=== PATIENT | female | born 1955 | race Caucasian/White ===

== ENCOUNTER 2017-08-19 05:22 | Emergency (ER) | payer OTHER, MEDICARE ==
[~2017-08-19] VITALS: Ht 172.7 cm; Wt 97.7 kg
[~2017-08-19 05:22] MED LIST: ALDACTONE25 MG PO; AMOX TR-K CLV1 EAC4 PO; APRISO0.375 GM PO; ASPIR 8181 M1 PO; ASPIRIN325 MG PO; Aldactazide 25/25 PO; CIPRO500 MG PO; CYMBALTA20 MG PO; Cipro PO; Dilaudid PO; FLAGYL500 MG PO; FLEXERIL10 MG PO; Flagyl PO; LORTAB 5-325 M1 EACH PO; LYRICA25 MG PO; Levaquin PO; MAXAIR AUTOHALE14 GM IH; MAXZIDE 37.5 M1 EACH PO; NEXIUM40 MG PO; PHENERGAN12.5 M1 PO; SPIRONOLACT/HC1 EACH PO; TORADOL10 MG PO; VITAMIN D32000 UNIT PO; Vicodin,Norco 5/325 PO; WELLBUTRIN SR200 MG PO
[2017-08-19 06:25] LABS: BASOPHIL (%) 0.1 % (0-1); EOSINOPHIL (%) 0.2 % (0-5); HEMATOCRIT 47.7 % (36.0-46.0); HEMOGLOBIN 16.2 G/DL (11.9-15.5); IMMATURE GRANULOCYTE (%) 0.2 % (0.0-0.7); LYMPHOCYTE (%) 5.8 % (15-42); LYMPHOCYTE COUNT 0.6 K/uL (1.0-2.8); MCH 29.8 PG (29.0-34.0); MCV 87.8 FL (83-99); MONOCYTE (%) 5.6 % (3-12); MONOCYTE COUNT 0.5 K/uL (0-0.8); NEUTROPHIL (%) 88.1 % (45-76); NEUTROPHIL COUNT 8.4 K/uL (1.8-6.4); PLATELET COUNT 202 K/uL (156-360); RBC DIS.WIDTH-CV 12.9 % (11.8-14.6); RBC DIS.WIDTH-SD 41.6 % (39-53); RED BLOOD COUNT 5.43 M/uL (3.80-5.20); WHITE BLOOD COUNT 9.5 K/uL (4.1-10.2)
[2017-08-19 06:33] LABS: ALBUMIN 4.3 g/dL (3.2-4.8); CHLORIDE 101 mEq/L (99-109); POTASSIUM 4.1 mEq/L (3.7-5.4); SODIUM 140 mEq/L (136-147)
[2017-08-19 06:35] LABS: GLUCOSE 155 mg/dL (70-99); TOTAL PROTEIN 8.3 g/dL (6.4-8.3)
[2017-08-19 06:37] LABS: TOTAL BILIRUBIN 1.4 mg/dL (0.0-1.0)
[2017-08-19 06:39] LABS: ALKALINE PHOSPHATASE 74 IU/L (3-129); CREATININE 1.1 mg/dL (0.6-1.3); GFR ESTIMATE (CALCULATED) 53 mL/min/
[2017-08-19 06:40] LABS: UREA NITROGEN (BUN) 26 mg/dL (9-23)
[2017-08-19 06:41] LABS: AST (GOT) 39 IU/L (2-34)
[2017-08-19 06:42] LABS: ALT (GPT) 32 IU/L (3-49); LIPASE 30 U/L (1.0-51.0)
[2017-08-19] MEDS ORDERED: ZOFRAN ODT4 MG PO (09:48)
[2017-08-19 10:08] VITALS: BP 142/76
== END 2017-08-19 10:09 | disposition home or self-care (01) ==
LOC: EME 05:22
PROVIDERS: Emergency Medicine
DX: K57.30 Diverticulosis of large intestine without perforation or abscess without bleeding (principal); R11.2 Nausea with vomiting, unspecified; E86.0 Dehydration; I10 Essential (primary) hypertension; J45.909 Unspecified asthma, uncomplicated; F32.9 Major depressive disorder, single episode, unspecified; M79.7 Fibromyalgia; K21.9 Gastro-esophageal reflux disease without esophagitis; Z90.49 Acquired absence of other specified parts of digestive tract; Z87.19 Personal history of other diseases of the digestive system; Z86.73 Personal history of transient ischemic attack (TIA), and cerebral infarction without residual deficits; Z85.3 Personal history of malignant neoplasm of breast; Z90.12 Acquired absence of left breast and nipple; Z91.040 Latex allergy status; Z88.1 Allergy status to other antibiotic agents
CPT/HCPCS: 74177; 80053; 81003; 83690; 85025; 99281; 99285; J2405; J3010; J7030